=== PATIENT | female | born 1995 | race American Indian/Alaskan Native ===

== ENCOUNTER 2017-09-17 17:29 | Emergency (ER) | payer MEDICAID ==
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
[2017-09-17] MEDS ORDERED: ULTRAM PO ONE (21:22)
[2017-09-17 21:43] VITALS: BP 112/62
== END 2017-09-17 21:41 | disposition home or self-care (01) ==
LOC: ED 17:29
DX: M54.9 Dorsalgia, unspecified (principal); G89.29 Other chronic pain; G43.909 Migraine, unspecified, not intractable, without status migrainosus
CPT/HCPCS: 99282

== ENCOUNTER 2018-11-06 22:56 | Emergency (ER) | payer MEDICAID ==
[2018-11-07 01:01] VITALS: BP 122/75
[2018-11-07 01:53] LABS: HCG Qualitative,Urine Negative (Negative)
[2018-11-07 01:55] LABS: Bilirubin,Urine NEG (Negative); Blood,Urine NEG (Negative); Color,Urine Yellow (Yellow); Mucus,Urine FEW /HPF; Protein,Urine <15 mg/dL mg/dL (Negative); Urobilinogen,Urine < 2.0 mg/dL (<2.0)
== END 2018-11-07 03:00 | disposition left against medical advice (07) ==
LOC: ED 22:56
DX: M54.9 Dorsalgia, unspecified (principal); Z53.21 Procedure and treatment not carried out due to patient leaving prior to being seen by health care provider
CPT/HCPCS: 81001; 81025

== ENCOUNTER 2019-01-08 00:11 | Emergency (ER) | payer MEDICAID, OTHER ==
[2019-01-08 00:31] VITALS: BP 108/66
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
== END 2019-01-08 02:10 | disposition home or self-care (01) ==
LOC: ED 00:11
DX: M54.5 Low back pain (principal); M25.512 Pain in left shoulder; G43.909 Migraine, unspecified, not intractable, without status migrainosus; Z98.890 Other specified postprocedural states; Z79.899 Other long term (current) drug therapy; V49.49XA Driver injured in collision with other motor vehicles in traffic accident, initial encounter; Y93.89 Activity, other specified; Y92.410 Unspecified street and highway as the place of occurrence of the external cause; Y99.8 Other external cause status

== ENCOUNTER 2021-09-19 12:12 | Emergency (ER) | payer OTHER ==
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
[2021-09-19 18:21] VITALS: BP 131/84
== END 2021-09-19 18:21 | disposition home or self-care (01) ==
LOC: ED 12:12
DX: L03.313 Cellulitis of chest wall (principal); G43.909 Migraine, unspecified, not intractable, without status migrainosus; Z98.890 Other specified postprocedural states
CPT/HCPCS: 99282